=== PATIENT | female | born 1950 | race Caucasian/White ===

== ENCOUNTER 2025-01-16 19:22 | Emergency (ER) | payer MEDICARE ==
[~2025-01-16] VITALS: Ht 165.1 cm; Wt 80.3 kg
[2025-01-16] MEDS ORDERED: LISINOPRIL10 MG PO (20:34)
[2025-01-16] MEDS ORDERED: ZOCOR40 MG PO (20:35)
[2025-01-16] MEDS ORDERED: AMOX TR-K CLV1 EAC1 PO (20:52)
[2025-01-16] MEDS ORDERED: AMOXICILLIN/CLAVULANATE K 875 MG HOME.PACK PO ONE (21:00)
[2025-01-16 21:08] VITALS: BP 156/71
== END 2025-01-16 21:11 | disposition home or self-care (01) ==
LOC: ED 19:22
DX: K04.7 Periapical abscess without sinus (principal); I10 Essential (primary) hypertension; Z79.899 Other long term (current) drug therapy
CPT/HCPCS: 99282